=== PATIENT | female | born 1975 ===

== ENCOUNTER → 2020-06-02 | Outpatient (CLI) | payer SELFPAY ==
[~2020-06-02] VITALS: Ht 157 cm; Wt 62.8 kg
[~2020-06-02] MED LIST: ACETAMINOPHEN 500 MG TAB (TYLENOL) ONE; ACETAMINOPHEN 500 MG TAB (TYLENOL) PO ONE; NS IV 500 ML 500 ML IV NR; NS IV 500 ML 500 ML ONE; diphenhydrAMINE 25 MG TAB (BENADRYL) PO ONE
[2020-06-02 12:05] VITALS: BP 124/67
--- NOTE | 2020-06-02 12:35 | Diagnostic Imaging Report ---
PROCEDURE: US Non-ob pelvis comp/trans. TECHNIQUE: Multiple realtime grayscale images were obtained of the pelvis in various projections endovaginally. Transabdominal imaging was also performed. INDICATION: Low hemoglobin. COMPARISON: None available. FINDINGS: The uterus measures 11.4 x 6.3 x 8.1 cm and is anteverted. The endometrium is very heterogeneous in appearance in its mid aspect with some potential debris extending into the endometrial canal. The endometrium measures up to 1.4 cm in thickness. There is a probable fibroid in the right elizabeth-aspect of the uterus measuring 3.0 x 2.0 x 2.4 cm and this has some heterogeneous echogenicity, similar to the myometrium. The right ovary measures 3.7 x 2.3 x 2.7 cm. There is an anechoic cyst within the right ovary measuring 1.6 x 1.6 x 1.6 cm. Blood flow seen in the right ovary by color Doppler and spectral Doppler imaging. The left ovary is not seen due to surrounding bowel gas. IMPRESSION: 1. Heterogeneous debris within the endometrial canal could represent blood products if patient is menstruating. Correlation with beta-hCG levels is suggested. 2. Probable intramural fibroid in the right elizabeth-aspect of the uterus. Dictated by: Dictated on workstation # [id number]
[2020-06-02 13:06] VITALS: BP 137/75
[2020-06-02 13:21] VITALS: BP 129/76
[2020-06-02 14:30] VITALS: BP 121/71
[2020-06-02 14:54] LABS: HEMOGLOBIN 7.9 g/dL (11.5-16.0)
== END ==
LOC: RAD 11:09
PROVIDERS: ATTEND Nurse Practitioner Family
DX: D64.9 Anemia, unspecified (principal); N93.9 Abnormal uterine and vaginal bleeding, unspecified
CPT/HCPCS: 36430; 76830; 76856; 85014; 85018; 86850; 86900; 86901; 86920; P9016; 36415

== ENCOUNTER → 2020-06-03 | Outpatient (CLI) | payer SELFPAY | LOC: LABNPT 05:54 | PROVIDERS: ATTEND Nurse Practitioner Family | DX: D64.9 Anemia, unspecified (principal); N93.9 Abnormal uterine and vaginal bleeding, unspecified; Z53.9 Procedure and treatment not carried out, unspecified reason ==

== ENCOUNTER 2020-06-18 12:38 | Emergency (ER) | payer SELFPAY ==
[~2020-06-18] VITALS: Ht 157.4 cm; Wt 59.0 kg
--- NOTE | 2020-06-18 13:04 | ED GU-Female ---
General Stated Complaint: ABNORMAL VAGINAL BLEEDING Source: patient Exam Limitations: no limitations History of Present Illness Date Seen by Provider: Jun 18, 2020 Time Seen by Provider: 13:01 Initial Comments to ER by private vehicle with reports of abnormal vaginal bleeding. She has irregular heavy periods and had to have a blood transfusion 3 days ago for this she states. She is on a multivitamin. She went to [facility] today and was instructed to come here for recurrent vaginal bleeding. Her last menstrual period was on 05/30. She began bleeding again today and has used 2 large pads. She denies any lightheadedness weakness or fatigue. She states that [facility] instructed her that they would arrange an appointment for her with gynecology but she has not yet seen anyone.she denies pain. She did have some abdominal cramping and she took an Advil prior to coming here and that is now gone. Timing/Duration: this morning Severity/Quality: moderate Radiation: none Activities at Onset: none Prior Genitourinary Problems: none Associated Symptoms: denies symptoms Allergies and Home Medications Allergies Coded Allergies: No Known Drug Allergies (Unverified , 06/02/20) Patient Home Medication List Home Medication List Reviewed: Yes Review of Systems Review of Systems Constitutional: see HPI EENTM: see HPI Respiratory: no symptoms reported Cardiovascular: no symptoms reported Genitourinary: no symptoms reported Musculoskeletal: no symptoms reported Skin: no symptoms reported Psychiatric/Neurological: No Symptoms Reported Endocrine: No Symptoms Reported Past Grddiyz-Xcwugo-Pdigtf Hx Patient Social History Recent Foreign Travel: No Contact w/Someone Who Travel: No Physical Exam Vital Signs Vital Signs - First Documented 06/18/20 12:50 Temp 36.0 Pulse 78 Resp 18 B/P (MAP) 154/104 (121) Pulse Ox 100 O2 Delivery Room Air Capillary Refill : Height, Weight, BMI Height: '" Weight: lbs. oz. kg; BMI Method: General Appearance: WD/WN, no apparent distress, other (vitals stable alert and oriented) HEENT: PERRL/EOMI, normal ENT inspection Neck: non-tender, full range of motion Respiratory: no respiratory distress, no accessory muscle use Gastrointestinal: normal bowel sounds, non tender Neurologic/Psychiatric: alert, normal mood/affect, oriented x 3 Skin: normal color, warm/dry Progress/Results/Core Measures Suspected Sepsis SIRS Temperature: Pulse: Respiratory Rate: Laboratory Tests 06/18/20 13:05: White Blood Count 8.0 Blood Pressure / Mean: Laboratory Tests 06/18/20 13:05: Creatinine 0.66, Platelet Count 231, Total Bilirubin 0.6 Results/Orders Lab Results Laboratory Tests Test 06/18/20 13:05 Range/Units White Blood Count 8.0 4.3-11.0 10^3/uL Red Blood Count 5.26 H 3.80-5.11 10^6/uL Hemoglobin 12.3 11.5-16.0 g/dL Hematocrit 40 35-52 % Mean Corpuscular Volume 76 L 80-99 fL Mean Corpuscular Hemoglobin 23 L 25-34 pg Mean Corpuscular Hemoglobin Concent 31 L 32-36 g/dL Red Cell Distribution Width 10.0-14.5 % Platelet Count 231 130-400 10^3/uL Mean Platelet Volume 9.0-12.2 fL Immature Granulocyte % (Auto) 0 % Neutrophils (%) (Auto) 69 42-75 % Lymphocytes (%) (Auto) 24 12-44 % Monocytes (%) (Auto) 6 0-12 % Eosinophils (%) (Auto) 1 0-10 % Basophils (%) (Auto) 0 0-10 % Neutrophils # (Auto) 5.5 1.8-7.8 10^3/uL Lymphocytes # (Auto) 1.9 1.0-4.0 10^3/uL Monocytes # (Auto) 0.5 0.0-1.0 10^3/uL Eosinophils # (Auto) 0.1 0.0-0.3 10^3/uL Basophils # (Auto) 0.0 0.0-0.1 10^3/uL Immature Granulocyte # (Auto) 0.0 0.0-0.1 10^3/uL Sodium Level 137 135-145 MMOL/L Potassium Level 3.8 3.6-5.0 MMOL/L Chloride Level 107 98-107 MMOL/L Carbon Dioxide Level 21 21-32 MMOL/L Anion Gap 9 5-14 MMOL/L Blood Urea Nitrogen 10 7-18 MG/DL Creatinine 0.66 0.60-1.30 MG/DL Estimat Glomerular Filtration Rate > 60 BUN/Creatinine Ratio 15 Glucose Level 95 70-105 MG/DL Calcium Level 8.9 8.5-10.1 MG/DL Corrected Calcium 8.6 8.5-10.1 MG/DL Total Bilirubin 0.6 0.1-1.0 MG/DL Aspartate Amino Transf (AST/SGOT) 29 5-34 U/L Alanine Aminotransferase (ALT/SGPT) 41 0-55 U/L Alkaline Phosphatase 71 40-136 U/L Total Protein 7.8 6.4-8.2 GM/DL Albumin 4.4 3.2-4.5 GM/DL Serum Test, Qualitative NEGATIVE NEGATIVE My Orders Orders - LE PERKINS APRN Cbc With Automated Diff (06/18/20 13:00) Comprehensive Metabolic Panel (06/18/20 13:00) Ed Iv/Invasive Line Start (06/18/20 13:00) Hcg,Qualitative Serum (06/18/20 13:05) Vital Signs/I&O 06/18/20 12:50 Temp 36.0 Pulse 78 Resp 18 B/P (MAP) 154/104 (121) Pulse Ox 100 O2 Delivery Room Air Capillary Refill : Departure Impression Primary Impression: irregular vaginal bleeding Disposition: HOME, SELF-CARE Condition: Stable Departure-Patient Inst. Decision time for Depature: 13:45 Referrals: [facility] (PCP/Family) Primary Care Physician CALI LEÓN DENNIS G MD Patient Instructions: IRREGULAR VAGINAL BLEEDING Add. Discharge Instructions: call Dr. Kaufman or Dr. LEÓN on Saturday to make an appointment to be seen. Take medication as directed. Return to ER for any worsening. Scripts Medroxyprogesterone Acetate (Medroxyprogesterone Acetate) 10 Mg Tablet 10 MG PO DAILY, #7 TAB Prov: LE PERKINS APRN 06/18/20 Copy Copies To 1: CALI LEÓN PETER J APRN Jun 18, 2020 13:04
[2020-06-18 13:10] LABS: EOSINOPHILS # (AUTO) 0.1 10^3/uL (0.0-0.3); EOSINOPHILS % (AUTO) 1 % (0-10); HEMOGLOBIN 12.3 g/dL (11.5-16.0)
[2020-06-18 13:12] LABS: BASOPHILS % (AUTO) 0 % (0-10); HEMATOCRIT 40 % (35-52); LYMPHOCYTES # (AUTO) 1.9 10^3/uL (1.0-4.0); LYMPHOCYTES % (AUTO) 24 % (12-44); MEAN CORPUSCULAR HEMOGLOBIN 23 pg (25-34); MEAN CORPUSCULAR HGB CONC 31 g/dL (32-36); MEAN CORPUSCULAR VOLUME 76 fL (80-99); MONOCYTES # (AUTO) 0.5 10^3/uL (0.0-1.0); MONOCYTES % (AUTO) 6 % (0-12); NEUTROPHILS # (AUTO) 5.5 10^3/uL (1.8-7.8); NEUTROPHILS % (AUTO) 69 % (42-75); PLATELET COUNT 231 10^3/uL (130-400)
[2020-06-18 13:20] LABS: ALBUMIN 4.4 GM/DL (3.2-4.5)
[2020-06-18 13:21] LABS: CHLORIDE 107 MMOL/L (98-107); POTASSIUM 3.8 MMOL/L (3.6-5.0); SODIUM 137 MMOL/L (135-145)
[2020-06-18 13:22] LABS: CALCIUM 8.9 MG/DL (8.5-10.1)
[2020-06-18 13:23] LABS: GLUCOSE 95 MG/DL (70-105); TOTAL PROTEIN 7.8 GM/DL (6.4-8.2)
[2020-06-18 13:24] LABS: CARBON DIOXIDE 21 MMOL/L (21-32)
[2020-06-18 13:25] LABS: BILIRUBIN,TOTAL 0.6 MG/DL (0.1-1.0)
[2020-06-18 13:26] LABS: ALKALINE PHOSPHATASE 71 U/L (40-136)
[2020-06-18 13:27] LABS: CREATININE SERUM 0.66 MG/DL (0.60-1.30); GFR ESTIMATED > 60
[2020-06-18 13:28] LABS: BUN/CREATININE RATIO 15
[2020-06-18 13:29] LABS: ALANINE AMINOTRANSFERASE 41 U/L (0-55)
[2020-06-18] MEDS ORDERED: MEDR10TA9 PO (13:47)
[2020-06-18 13:51] VITALS: BP 154/104
== END 2020-06-18 13:51 | disposition home or self-care (01) ==
LOC: EDUNIT# 12:38 → ER 12:40
DX: N93.8 Other specified abnormal uterine and vaginal bleeding (principal)
CPT/HCPCS: 36415; 80053; 84703; 85025

== ENCOUNTER 2020-07-14 05:29 | Outpatient (RCR) | payer OTHER ==
[~2020-07-14] VITALS: Ht 154.9 cm; Wt 63.2 kg
[~2020-07-14 05:29] MED LIST changes: -ACETAMINOPHEN 500 MG TAB (TYLENOL) ONE; -ACETAMINOPHEN 500 MG TAB (TYLENOL) PO ONE; +ASCO500T17 PO; +MEDR10TA9 PO; -NS IV 500 ML 500 ML IV NR; -NS IV 500 ML 500 ML ONE; -diphenhydrAMINE 25 MG TAB (BENADRYL) PO ONE
[2020-07-18] MEDS ORDERED: IBUP-1773 PO (09:26)
== END 2020-07-14 11:44 | disposition home or self-care (01) ==
LOC: PREOP 05:29
PROVIDERS: ATTEND Obstetrics & Gynecology
DX: Z01.812 Encounter for preprocedural laboratory examination (principal); O20.0 Threatened abortion; Z3A.00 Weeks of gestation of pregnancy not specified; Z20.822 Contact with and (suspected) exposure to COVID-19
CPT/HCPCS: 87635

== ENCOUNTER 2020-07-18 06:35 | Day surgery (SDC) | payer OTHER ==
[~2020-07-18] VITALS: Ht 154 cm; Wt 63.2 kg
[2020-07-18] VITALS (10 sets, daily range): BP systolic 110–131; BP diastolic 74–87
[2020-07-18] MEDS ORDERED: BUPIVACAINE 0.25% 30 ML (SENSORCAINE) VIAL ONE (07:09)
[2020-07-18 07:38] LABS: BASOPHILS % (AUTO) 0 % (0-10); EOSINOPHILS # (AUTO) 0.1 10^3/uL (0.0-0.3); EOSINOPHILS % (AUTO) 2 % (0-10); HEMATOCRIT 36 % (35-52); HEMOGLOBIN 11.6 g/dL (11.5-16.0); LYMPHOCYTES # (AUTO) 1.9 10^3/uL (1.0-4.0); LYMPHOCYTES % (AUTO) 27 % (12-44); MEAN CORPUSCULAR HEMOGLOBIN 26 pg (25-34); MEAN CORPUSCULAR HGB CONC 32 g/dL (32-36); MEAN CORPUSCULAR VOLUME 81 fL (80-99); MEAN PLATELET VOLUME 10.8 fL (9.0-12.2); MONOCYTES # (AUTO) 0.4 10^3/uL (0.0-1.0); MONOCYTES % (AUTO) 6 % (0-12); NEUTROPHILS # (AUTO) 4.4 10^3/uL (1.8-7.8); NEUTROPHILS % (AUTO) 64 % (42-75); PLATELET COUNT 283 10^3/uL (130-400); WHITE BLOOD COUNT 6.9 10^3/uL (4.3-11.0)
[2020-07-18] MEDS ORDERED: LACTATED RINGERS 1,000 ML IV PRN (07:45)
--- NOTE | 2020-07-18 09:19 | Progress Note-Pre Operative ---
Pre-Operative Progress Note H&P Reviewed The H&P was reviewed, patient examined and no changes noted. Date Seen by Provider: Jul 18, 2020 Time Seen by Provider: 09:15 Date H&P Reviewed: Jul 18, 2020 Time H&P Reviewed: 09:15 Pre-Operative Diagnosis: CALI GUILLEN DO Jul 18, 2020 09:19
[2020-07-18] MEDS ORDERED: MIDAZOLAM 2 MG/2 ML (VERSED) VIAL ONE (09:25)
[2020-07-18] MEDS ORDERED: proPOfol 200 MG/20 ML (DIPRIVAN) VIAL IV ONE (09:25)
[2020-07-18] MEDS ORDERED: LIDOCAINE PF 2% 5 ML (XYLOCAINE) VIAL ONE (09:25)
[2020-07-18] MEDS ORDERED: ONDANSETRON 4 MG/2 ML (SDV) Z0FRAN ONE (09:25)
[2020-07-18] MEDS ORDERED: IBUP-1773 PO (09:26)
[2020-07-18] MEDS ORDERED: fentaNYL INJECTION 100 MCG/2 ML AMP ONE (09:27)
--- NOTE | 2020-07-18 09:27 | Discharge Inst-Women's Service ---
Discharge Inst-Women's Serv Depart Medication/Instructions New, Converted or Re-Newed RX: Call to Patients Pharmacy Final Diagnosis s/p D and C Problems Reviewed?: Yes Consults/Follow Up Additional Follow Up: Yes Orders/Referrals DR León in 10-14 days Activity Activity: Activity as Tolerated Driving Instructions: No Driving for 1 Week NO SMOKING: NO SMOKING Nothing Inside Vagina: No Douching, No [place], No Tampons Diet Discharge Diet: No Restrictions Symptoms to Report to : Bleeding Excessive, Pain Increased, Fever Over 101 Degrees F, Vaginal Bleeding Increase, Questions/Concerns CALI LEÓN DO Jul 18, 2020 09:27
[2020-07-18] MEDS ORDERED: ONDANSETRON 4 MG/2 ML (SDV) Z0FRAN IVP PRN ×2 (09:30→10:15)
[2020-07-18] MEDS ORDERED: HYDROcodone/APAP 5 MG/325 MG (LORTAB) TAB PO PRN (09:30)
[2020-07-18] MEDS ORDERED: D5 LR IV SOLUTION 1,000 ML IV SCH (09:30)
[2020-07-18] MEDS ORDERED: KETOROLAC 30 MG/ML VIAL IVP ONE (09:30)
[2020-07-18] MEDS ORDERED: SEVOFLURANE (ULTANE) 15 ML INHAL SOLN ONE (09:52)
[2020-07-18] MEDS ORDERED: morphine INJ 10 MG/ML 1ML (SYR OR VIAL) IVP ONE (10:15)
[2020-07-18] MEDS ORDERED: PROMETHAZINE INJ 25 MG/ML (PHENERGAN) AMP IVP ONE (10:15)
[2020-07-18] MEDS ORDERED: MEPERIDINE (DEMEROL) INJ 50 MG/ML IVP ONE (10:15)
[2020-07-18] MEDS ORDERED: KETOROLAC 30 MG/ML VIAL ONE (10:17)
--- NOTE | 2020-07-18 10:53 | OPERATIVE REPORT ---
DATE OF SERVICE: PREOPERATIVE DIAGNOSES: 1. A 45-year-old female with abnormal uterine bleeding. 2. Thickened endometrium on ultrasound. POSTOPERATIVE DIAGNOSES: 1. A 45-year-old female with abnormal uterine bleeding. 2. Thickened endometrium on ultrasound. PROCEDURE: D and C. SURGEON: Cali León DO ANESTHESIA: LMA general. ESTIMATED BLOOD LOSS: Minimal. URINE OUTPUT: 150, clear at the end of procedure. FLUIDS: 600 mL lactated Ringer's solution. FINDINGS: A grossly normal appearing external female genitalia. Normal appearing cervix, slightly bulky and enlarged uterus on bimanual examination and a moderate amount of endometrial curettings. SPECIMEN SENT: Endometrial curettings. INDICATIONS FOR PROCEDURE: This 45-year-old female is a patient that was consulted to my office for abnormal uterine bleeding at the age of 45. An ultrasound revealed thickened endometrium suspicious for carcinoma versus endometrial polyp. I discussed with the patient diagnostic procedure in detail in the form of an endometrial sampling. We discussed proceeding with endometrial biopsy in the office versus performing a D and C. I discussed with the patient the potential of a D and C being curative if this was a benign process. She was agreeable to proceed with D and C. Risks of procedure were discussed with the patient in detail including risk of bleeding, infection, damage to surrounding structures including, but not limited to uterus itself. After all of her questions were answered, consent was obtained, the patient was taken to the operating room. OPERATIVE REPORT IN DETAIL: Once in the operating room, anesthesia was found to be adequate. She was placed in dorsal lithotomy position, prepped and draped in normal sterile fashion. A timeout was performed. A weighted speculum inserted to the patient's vagina. Right angle retractor was used to visualize the cervix. It was grasped at 12 o'clock position using long Allis clamp. A paracervical block was then performed at 3 and 9 o'clock positions on the cervix. Care was taken to aspirate for injecting, 5 mL of 0.25% Marcaine are injected into each site after which I gently sound the uterine cavity, depth was found to be 8 cm. I then gently dilated the cervix using Hanks dilators to maximum dilatation approximately 1 cm, at which point I performed a gentle curettage of all surfaces of the endometrium until a gentle uterine cry is noted. All of the endometrial curettings were collected and sent together as endometrial curettings. I then removed the Allis clamp. There was no active bleeding noted from the cervix, just a very subtle ooze of blood. The weighted speculum was removed. Straight catheterization was performed at that point. Lap and sponge counts were correct at the end of the procedure. Instrument counts correct as well. The patient tolerated the procedure well and sent to recovery in stable condition. Job ID: [id number] DocumentID: [id number] Dictated Date: 07/18/2020 10:01:32 Rn Baby Date: 07/18/2020 10:53:14 Dictated By: CALI LEÓN DO
[2020-07-18] MEDS ORDERED: HYDROcodone/APAP 5 MG/325 MG (LORTAB) TAB ONE (10:55)
--- NOTE | 2020-07-21 06:59 | Anesthesia-General Post-Op ---
General Significant Intra-Op Events Notes Late entry: from 07-18-20 @ 1110 Post Op Complications Complications None Follow Up Care/Instructions Patient Instructions None needed. Anesthesia/Patient Condition Patient Condition Patient is doing well, no complaints, stable vital signs, no apparent adverse anesthesia problems. No complications reported per nursing. HORACIO GUERRIER CRNA Jul 21, 2020 06:59
== END 2020-07-18 12:03 | disposition home or self-care (01) ==
LOC: SDC 06:35
PROVIDERS: ATTEND Obstetrics & Gynecology
DX: N84.0 Polyp of corpus uteri (principal); D50.0 Iron deficiency anemia secondary to blood loss (chronic); R93.89 Abnormal findings on diagnostic imaging of other specified body structures
CPT/HCPCS: 36415; 84703; 85025; 86850; 86900; 86901; 87081; 88305

== ENCOUNTER 2020-12-05 05:40 | Outpatient (CLI) | payer OTHER ==
[~2020-12-05] VITALS: Ht 154.9 cm; Wt 63.6 kg
[~2020-12-05 05:40] MED LIST changes: +IBUP-1773 PO
== END 2020-12-06 13:15 | disposition home or self-care (01) ==
LOC: PREOP 05:40
PROVIDERS: ATTEND Obstetrics & Gynecology
DX: Z01.818 Encounter for other preprocedural examination (principal)

== ENCOUNTER 2020-12-12 07:00 | Day surgery (SDC) | payer OTHER ==
[2020-12-12] VITALS (11 sets, daily range): BP systolic 92–151; BP diastolic 54–76
[~2020-12-12] VITALS: Ht 154.9 cm; Wt 63.6 kg
[2020-12-12] MEDS ORDERED: BUPIVACAINE 0.25% 30 ML (SENSORCAINE) VIAL ONE (07:13)
[2020-12-12] MEDS ORDERED: MIDAZOLAM 2 MG/2 ML (VERSED) VIAL ONE (07:39)
[2020-12-12] MEDS ORDERED: fentaNYL INJ 100 MCG/2 ML AMP ONE (07:40)
[2020-12-12] MEDS ORDERED: metroNIDAZOLE 500MG/100ML IVPB 100 ML IV ONE (08:00)
[2020-12-12] MEDS ORDERED: ceFAZolin 2 GM IV Premixed 50 ML IV ONE (08:00)
[2020-12-12 08:11] LABS: BASOPHILS % (AUTO) 0 % (0-10); EOSINOPHILS % (AUTO) 0 % (0-10); HEMATOCRIT 41 % (35-52); LYMPHOCYTES # (AUTO) 1.7 10^3/uL (1.0-4.0); LYMPHOCYTES % (AUTO) 22 % (12-44); MEAN CORPUSCULAR HEMOGLOBIN 30 pg (25-34); MEAN CORPUSCULAR HGB CONC 35 g/dL (32-36); MEAN CORPUSCULAR VOLUME 86 fL (80-99); MEAN PLATELET VOLUME 10.2 fL (9.0-12.2); MONOCYTES # (AUTO) 0.5 10^3/uL (0.0-1.0); MONOCYTES % (AUTO) 7 % (0-12); NEUTROPHILS # (AUTO) 5.3 10^3/uL (1.8-7.8); NEUTROPHILS % (AUTO) 70 % (42-75); PLATELET COUNT 237 10^3/uL (130-400); WHITE BLOOD COUNT 7.5 10^3/uL (4.3-11.0)
--- NOTE | 2020-12-12 08:21 | Progress Note-Pre Operative ---
Pre-Operative Progress Note H&P Reviewed The H&P was reviewed, patient examined and no changes noted. Date Seen by Provider: Dec 12, 2020 Time Seen by Provider: 08:15 Date H&P Reviewed: Dec 12, 2020 Time H&P Reviewed: 08:15 Pre-Operative Diagnosis: Menorrhagia, Chronic blood loss anemia, Dysmenorrhea CALI LEÓN DO Dec 12, 2020 08:21
[2020-12-12] MEDS ORDERED: DCS100C PO (08:29)
[2020-12-12] MEDS ORDERED: IBUP-844 PO (08:29)
[2020-12-12] MEDS ORDERED: HYDR-34 PO (08:29)
[2020-12-12] MEDS ORDERED: SMT80CT PO (08:29)
[2020-12-12] MEDS ORDERED: CHLORASEPTIC LOZENGE MM PRN (08:30)
[2020-12-12] MEDS ORDERED: ONDANSETRON 4 MG/2 ML (SDV) Z0FRAN IV PRN (08:30)
[2020-12-12] MEDS ORDERED: KETOROLAC 30 MG/ML VIAL IV PRN (08:30)
[2020-12-12] MEDS ORDERED: ZOLPIDEM 5 MG (AMBIEN) TAB PO PRN (08:30)
[2020-12-12] MEDS ORDERED: DOCUSATE SODIUM 100 MG (COLACE) CAP PO PRN (08:30)
[2020-12-12] MEDS ORDERED: LACTATED RINGERS 1,000 ML IV SCH (08:30)
[2020-12-12] MEDS ORDERED: ANTACID SUSP 30 ML UDC (MYLANTA) PO PRN (08:30)
[2020-12-12] MEDS ORDERED: SIMETHICONE 80 MG (MYLICON) CHEW PO PRN (08:30)
[2020-12-12] MEDS ORDERED: HYDROcodone/APAP 7.5 MG/325 MG (LORTAB, LORCET PLUS) TABLET PO PRN (08:30)
--- NOTE | 2020-12-12 08:30 | Discharge Inst-Women's Service ---
Discharge Inst-Women's Serv Depart Medication/Instructions New, Converted or Re-Newed RX: RX on Chart Final Diagnosis POD 0 RATLH Problems Reviewed?: Yes Consults/Follow Up Additional Follow Up: Yes Orders/Referrals Dr. Wetzel in 7-10 days and in 8 weeks Activity Activity: Activity as Tolerated Driving Instructions: No Driving for 1 Week NO SMOKING: NO SMOKING Nothing Inside Vagina: No Douching, No [place], No Tampons Other Activity Take daily probiotic, buy OTC. Diet Discharge Diet: No Restrictions Symptoms to Report to : Bleeding Excessive, Pain Increased, Fever Over 101 Degrees F, Vaginal Bleeding Increase, Questions/Concerns For Any Problems or Questions: Contact Your Physician Skin/Wound Care Infection Signs and Symptoms: Increased Redness, Foul Odor of Wound, Increased Drainage, Skin Itchy or Has a Rash, Increased Swelling, Temperature Above 101 F Operative Area Clean and Dry: Keep Incision Clean/Dry Stitches/Jackson/Dermabond: Dermabond, Care of Stitches Bathing Instructions: ShowCALI Hernandez DO Dec 12, 2020 08:30
[2020-12-12] MEDS: LACTATED RINGERS 1,000 ML IV PRN ×2 (08:33→09:32)
[2020-12-12] MEDS ORDERED: GLYCOPYRROLATE 0.2 MG/ML (ROBINUL) 2 ML VIAL ONE (09:39)
[2020-12-12] MEDS ORDERED: NEOSTIGMINE 3 MG/3 ML VIAL ONE (09:39)
[2020-12-12] MEDS ORDERED: SEVOFLURANE (ULTANE) 15 ML INHAL SOLN ONE (09:39)
[2020-12-12] MEDS ORDERED: ROCURONIUM 10 MG/ML 5 ML SYRINGE IV ONE (09:39)
[2020-12-12] MEDS ORDERED: LIDOCAINE PF 2% 5 ML (XYLOCAINE) VIAL ONE (09:39)
[2020-12-12] MEDS ORDERED: ONDANSETRON 4 MG/2 ML (SDV) Z0FRAN ONE (09:39)
[2020-12-12] MEDS ORDERED: proPOfol 200 MG/20 ML (DIPRIVAN) VIAL IV ONE (09:39)
[2020-12-12] MEDS ORDERED: HYDROmorphone 2 MG/ML VIAL (DILAUDID) ONE (09:53)
[2020-12-12] MEDS ORDERED: KETOROLAC 30 MG/ML VIAL ONE (10:10)
[2020-12-12] MEDS ORDERED: HYDROmorphone 2 MG/ML VIAL (DILAUDID) IV ONE (10:30)
[2020-12-12] MEDS ORDERED: ONDANSETRON 4 MG/2 ML (SDV) Z0FRAN IVP PRN (10:30)
[2020-12-12] MEDS ORDERED: morphine INJ 10 MG/ML 1ML (SYR OR VIAL) IVP ONE (10:30)
--- NOTE | 2020-12-12 11:39 | Anesthesia-General Post-Op ---
General Patient Condition Mental Status/LOC: Same as Preop Cardiovascular: Satisfactory Nausea/Vomiting: Absent Respiratory: Satisfactory Pain: Controlled Complications: Absent Post Op Complications Complications None Follow Up Care/Instructions Patient Instructions None needed. Anesthesia/Patient Condition Patient Condition Patient was seen after the procedure and she was doing well, no complaints, stable vital signs, no apparent adverse anesthesia problems. NED EAST DO Dec 12, 2020 11:39
--- NOTE | 2020-12-12 18:02 | OPERATIVE REPORT ---
DATE OF SERVICE: PREOPERATIVE DIAGNOSES: 1. A 45-year-old female with menorrhagia. 2. Chronic blood loss anemia. 3. Dysmenorrhea. POSTOPERATIVE DIAGNOSES: 1. A 45-year-old female with menorrhagia. 2. Chronic blood loss anemia. PROCEDURE: Robotic-assisted total laparoscopic hysterectomy with bilateral salpingectomy. SURGEON: Lefty León DO ANESTHESIA: General endotracheal. ESTIMATED BLOOD LOSS: Minimal. URINE OUTPUT: 100 mL clear at the end of the procedure. FLUIDS: 1600 mL lactated Ringer's solution. FINDINGS: A bulky and hyperemic appearing uterus, slightly enlarged with grossly normal appearing bilateral fallopian tubes and ovaries. SPECIMEN SENT: Bilateral fallopian tubes, uterus and cervix. INDICATIONS FOR PROCEDURE: This 45-year-old female is a patient who had been consulted to my office for continued issues with heavy abnormal bleeding. She underwent D and C earlier in the year and found to have simple hyperplasia without atypia. This was recommended to be monitored and followed up with a subsequent biopsy; however, within the next 6 months, the patient again had returned to heavy painful bleeding. Due to this ongoing issue, decision was made to proceed with hysterectomy. Risks of procedure were discussed with the patient in detail including risk of bleeding, infection, damage to surrounding structures including, but not limited to bowel, bladder, ureter, kidneys, possible need for operation, postoperative complications that may occur, recovery timeframe, risk from anesthesia and even . After everything was discussed with the patient in detail, consent was obtained in the preoperative area, the patient was taken to the operating room. OPERATIVE REPORT IN DETAIL: Once in the operating room, general anesthesia was found to be adequate. She was placed in the dorsal lithotomy position, prepped and draped in normal sterile fashion. A timeout was performed. Chappell catheter was placed using sterile technique. A weighted speculum inserted to the patient's vagina. Right angle retractor was used to visualize the cervix, which was grasped at 12 o'clock position using long Allis clamp. I then placed an 0 Vicryl suture through the anterior lip of the cervix. I removed the Allis clamp and used the suture as my retraction on the cervix. I then gently sound the uterine cavity, depth was found to be 8 cm. I selected 8 cm Tere uterine manipulator tip and a 4 cm colpotomy ring, advanced manipulator tip into the uterus deploying the balloon and advanced colpotomy ring around the vaginal fornix. I removed all the other instruments from the patient's vagina, performed a change of gloves obtained my attention to the abdomen where infraumbilically I infiltrated this area using 0.25% Marcaine to make an 8 mm incision with a knife and directed Veress needle through the incision, intraperitoneal placement was confirmed using saline drop test. An opening pressure of 3 mmHg was noted, proceeded to maximum pressure of 15 mmHg using CO2 gas, at which point I removed the Veress needle and introduced a blunt 8 mm laparoscopic da Rodney camera trocar. Once this was in place, I was able to confirm intraperitoneal placement using the da Rodney laparoscope. There was no evidence of damage upon my entry site. A brief scan of the upper abdominal anatomy appears grossly normal. I then had the patient placed in steep Trendelenburg where I am able to visualize all my pelvic anatomy was defined in my findings above. I then placed two lateral trocars approximately 8 cm lateral to my infraumbilical trocar. These were both 8 mm trocar sites approximately 8 cm lateral to my infraumbilical trocar sites. Once these were both in place by infiltrating the skin, making an incision with a knife and placing them under direct visualization of laparoscope. I then brought in the da Rodney robot and docked it in the appropriate fashion placing the vessel sealer in the left hand and monopolar shawna in the right hand. I then performed the following dissection bilaterally. I started at the uteroovarian ligament, which I bipolar cauterized and transected using vessel sealer. I then created a window in the mesosalpinx and took this laterally, cauterized and transecting as I go down the mesosalpinx amputating the fallopian tube from its surrounding blood supply. I then grasped the round ligament, which I bipolar cauterized and transected using vessel sealer. I then grasped the entire broad ligament, which I bipolar cauterized and transected using the vessel sealer down to the level of the lower uterine segment, at which point I the anterior and posterior leaflets of the broad ligament, anterior leaflet dissection was taken around the anterior vaginal fornix. The posterior leaflet was taken around to the posterior vaginal fornix. This allows me to skeletonize the uterine vessels laterally, which I bipolar cauterized and transected using the vessel sealer. I then created a colpotomy at 12 o'clock position using monopolar shawna and took this circumferentially around the vaginal fornix amputating the cervix away from the vagina. The entire specimen was then easily removed through the vagina. I then closed the lateral vaginal apices of the vaginal cuff using 2-0 Vicryl suture in a [id number] fashion colposuspending them to the uterosacral ligaments. I then closed the remainder of the vaginal cuff using 2-0 V-Loc in a running fashion, after which there was no active bleeding noted from any of my dissection planes. I then undocked the da Rodney robot and proceeded with remainder of the case laparoscopically. I copiously irrigated the pelvis using normal saline. Once again, there was no active bleeding noted from any of my dissection planes. I then placed Surgiflo hemostatic agent over all my planes of dissection to ensure excellent postoperative hemostasis. I then had the patient taken out of steep Trendelenburg, I removed the lateral trocars under direct visualization of the laparoscope and infraumbilical trocars left in place to release insufflation and introduced 10 mL of 0.25% Marcaine into the peritoneal cavity for postoperative pain management. I then removed this trocar as well. The skin reapproximated using 4-0 Monocryl in interrupted subcuticular stitches. Dermabond was applied to incision and sterile dressing with adhesive white tape. Chappell catheter was left in place. Two grams of Ancef, 500 mg of Flagyl were given preoperatively for infection prophylaxis. Job ID: [id number] DocumentID: [id number] Dictated Date: 12/12/2020 10:52:13 Security Monitor Date: 12/12/2020 18:01:44 Dictated By: LEFTY LEÓN DO
[2020-12-13] MEDS ORDERED: IBUPROFEN 600 MG (MOTRIN) TAB PO SCH (01:00)
--- NOTE | 2020-12-13 11:58 | Anesthesia-General Post-Op ---
General Patient Condition Mental Status/LOC: Same as Preop Cardiovascular: Satisfactory Nausea/Vomiting: Absent Respiratory: Satisfactory Pain: Controlled Complications: Absent Post Op Complications Complications None Follow Up Care/Instructions Patient Instructions None needed. Anesthesia/Patient Condition Patient Condition Patient is doing well, no complaints, stable vital signs, no apparent adverse anesthesia problems. No complications reported per nursing. ANA CHILDERS CRNA Dec 13, 2020 11:58
== END 2020-12-12 17:22 | disposition home or self-care (01) ==
LOC: SDC 07:00 → WS 10:54 → SDC 17:22
PROVIDERS: ATTEND Obstetrics & Gynecology
DX: D25.1 Intramural leiomyoma of uterus (principal); N72 Inflammatory disease of cervix uteri; N84.0 Polyp of corpus uteri; N88.8 Other specified noninflammatory disorders of cervix uteri; N80.0 Endometriosis of uterus; N80.2 Endometriosis of fallopian tube; N83.8 Other noninflammatory disorders of ovary, fallopian tube and broad ligament; D50.0 Iron deficiency anemia secondary to blood loss (chronic); Z79.899 Other long term (current) drug therapy; Z98.890 Other specified postprocedural states; Z98.51 Tubal ligation status
CPT/HCPCS: 36415; 84703; 85025; 86850; 86900; 86901; 87081; 88305; 94664